=== PATIENT | female | born 1980 | race Caucasian/White ===

== ENCOUNTER 2017-05-15 08:50 | Inpatient (IN) | payer BC ==
[2017-05-15] MEDS ORDERED: OLIVE OIL 118 ML BTL MISC PRN ×2 (09:27→09:28)
[2017-05-15] MEDS ORDERED: TERBUTALINE SULFATE 1 MG/ML VIAL IV PRN ×2 (09:27→09:28)
[2017-05-15] MEDS ORDERED: LR 1,000 ML IV PRN ×2 (09:27→09:28)
[2017-05-15] MEDS ORDERED: IBUPROFEN 600 MG TAB PO PRN (09:27)
[2017-05-15] MEDS ORDERED: EPSOM SALT 454 GM TP PRN ×2 (09:27→09:28)
[2017-05-15] MEDS ORDERED: OXYTOCIN/RINGERS LACTATE 1,000 ML IV PRN ×2 (09:27→09:28)
[2017-05-15] MEDS ORDERED: BETAMETHASONE IM SYRINGE IM ONE (09:29)
--- NOTE | 2017-05-15 09:31 | OBPROG ---
OBG Labor Progress Note Assessment/Plan: Assessment: cat 1 fhr epidural for pain relief admit for labor /-1 cephalic contractions q 3 minutes continuous monitoring gbs negative Plan:expectant management of labor 05/15/17 09:30 Subjective: I would like an epidural for pain relief - SVE Dilation (cm): 4 Effacement (%): 80 Station: -1 ICD10 Worksheet Patient Problems: Problems Problem Status Onset labor Acute labor with delivery Acute delivery delivered Acute
[2017-05-15 09:52] LABS: % IMMATURE GRANULYOCYTES 1.7 % (0.0-1.1); ABSOLUTE NRBC COUNT 0.02 10^3/uL (0-0.01); ADD DIFF? NO; ADD MORPH? NO; ADD SCAN? NO; ATYPICAL LYMPHOCYTE FLAG 30 (0-99); FRAGMENT RBC FLAG 0 (0-99); HEMATOCRIT 37.2 % (38.0-47.0); HEMOGLOBIN 12.9 g/dL (12.6-16.3); LEFT SHIFT FLG 10 (0-99); LIPEMIA HEMOLYSIS FLAG 90 (0-99); MEAN CELL HEMOGLOBIN 30.3 pg (27.9-34.1); MEAN CELL HEMOGLOBIN CONCENTR. 34.7 g/dL (32.4-36.7); MEAN CELL VOLUME 87.3 fL (81.5-99.8); NRBC-AUTO% 0.2 % (0.0-0.2); PLATELET CLUMPS FLAG 0 (0-99); PLATELET COUNT 202 10^3/uL (150-400); RED BLOOD CELL COUNT 4.26 10^6/uL (4.18-5.33); RED CELL DISTRIBUTION WIDTH 13.1 % (11.5-15.2)
[2017-05-15] MEDS ORDERED: fentaNYL 100 MCG/2 ML INJ ONE (10:24)
[2017-05-15] MEDS ORDERED: fentaNYL 2MCG/ML/BUP 0.1% RTU 100 ML BAG EP ONE (10:25)
[2017-05-15] MEDS ORDERED: PHENYLEPHRINE HCL 100 MCG/ML SYR ONE (10:25)
[2017-05-15] MEDS ORDERED: BUPIVACAINE 0.25% 30 ML SDV ONE (10:25)
[2017-05-15] MEDS ORDERED: LIDOCAINE 1% 300 MG/30 ML SDV ONE (10:50)
[2017-05-15] MEDS ORDERED: OLIVE OIL 118 ML BTL ONE (10:50)
[2017-05-15] MEDS ORDERED: AMMONIA AROMATIC 1 EACH AMP IH ONE (10:51)
[2017-05-15] MEDS ORDERED: OXYTOCIN 10 UNIT/ML VIAL ONE (10:51)
[2017-05-15] MEDS ORDERED: TERBUTALINE SULFATE 1 MG/ML VIAL ONE (10:51)
[2017-05-15] MEDS ORDERED: MISOPROSTOL 200 MCG TAB ONE (10:51)
[2017-05-15] MEDS ORDERED: fentaNYL 2MCG/ML/BUP 0.1% RTU 100 ML EP SCH (11:00)
[2017-05-15] MEDS ORDERED: LR 500 ML IV SCH (11:00)
[2017-05-15] MEDS ORDERED: ACETAMINOPHEN 325 MG TAB PO PRN (12:13)
[2017-05-15] MEDS ORDERED: HYDROCORTISONE 0.5% CREAM TP PRN (12:13)
[2017-05-15] MEDS ORDERED: HYDROCODONE/APAP 5/325 TAB PO PRN (12:13)
[2017-05-15] MEDS ORDERED: SIMETHICONE 80 MG TAB CHEW PO PRN (12:13)
--- NOTE | 2017-05-15 12:13 | OBDEL ---
Info Type: Vaginal GBS+: No Indications for Delivery: Spontaneous Labor, SROM Vaginal Delivery - Labor and Delivery Onset of Contractions Date: 05/15/17 Onset of Contractions Time: 06:30 Onset of Contractions Type: Spontaneous Rupture of Membranes Date: 05/15/17 Rupture of Membranes Time: 10:30 Rupture of Membranes Type: Spontaneous Amniotic Fluid Color: Clear Dilation Complete Date: 05/15/17 Dilation Complete Time: 10:57 Laceration: 2nd Degree Repair: 3-0, Vicryl Vaginal Sponge Count Correct: Yes Vaginal Needle Count Correct: Yes Vaginal Sweep Performed: Yes EBL: 400 Delivery Events: None - Medications Labor Augmentation/Induction Methods Used: None, Other (Specify) ( 36.6 weeks. Bruised face) [place] Data [place] Delivery Date: 05/15/17 Delivery Time: 11:26 SKYE: 06/06/17 Gestational Age: 36 week(s) and 6 day(s) Sex of Infant: Male Score (1 Min): 8 Score (5 Min): 9 ICD10 Worksheet Patient Problems: Problems Problem Status Onset delivery delivered Acute labor Acute labor with delivery Acute
--- NOTE | 2017-05-15 13:53 | GHP ---
[f rep st] HISTORY AND PHYSICAL DATE OF ADMISSION: 05/15/2017 HISTORY OF PRESENT ILLNESS: Patient is a 37-year-old, 2, para 1, with an EDC of 06/06/2017, who comes in at 36 and 6/7 weeks, complaint of regular contractions since 0600 on 05/15/2017. Stat es bag of water is intact. Denies bloody show. States feeling positive movement. The angélica sosa has routinely been seen by [facility] throughout her , since 10 weeks and 1 day . MEDICAL HISTORY: Patient has a history of cystitis, UTI x1, 1-1/2 years ago. Asthma, adult onset, uses Advair. SURGERIES: The patient had a in 2013. [place] teeth in college. Present histor y: AMA, history of . History of delivery at 36-5/7 weeks. Marginal previa that w as resolved. Previous pregnancies: In 2013, a for failure to descend. Failure to progre ss. SOCIAL HISTORY: Patient is to [facility]. Denies smoking history, denies drug use history. GYNECOLOGICAL HISTORY: History of OCP's and Mirena. 2003, a colpo, re-Pap was negative. PHYSICAL ASSESSMENT: GENERAL: Patient is awake, alert, oriented x3. LUNGS: Clear bilaterally. A BDOMEN: Bowel sounds are positive in all 4 quadrants. EXTREMITIES: DTRs are 1+ bilaterally. Liv slade has received an epidural for pain relief at her request. PLAN OF CARE: 1. Group beta streptococcus negative. 2. Betamethasone, as patient is 36-6/7 weeks. 3. Expectant management of labor. 4. Patient is TOLAC. Physician was made aware and anesthesia as in-house. CONSULT: Dr. Mecca Diaz, as needed. Dr. Diaz is the physician on-call today. /[id number]/MODL
[2017-05-15] MEDS: IBUPROFEN 600 MG TAB PO PRN (16:16)
[2017-05-16] MEDS: IBUPROFEN 600 MG TAB PO PRN ×4 (00:08→18:33)
[2017-05-16] MEDS: IRON POLYSAC/IRON HEME 28 MG TAB PO SCH (08:15)
[2017-05-16] MEDS: DOCUSATE SODIUM 100 MG CAP PO PRN ×2 (08:15→20:39)
--- NOTE | 2017-05-16 09:47 | OBPP ---
Progress Note Assessment/Plan: Assessment: ppd# 1 s/p uncomplicated post course breast feeding anemia Plan: routine post care iron 05/16/17 09:46 Subjective: patient is doing well. pain is well controlled. normal lochia. breast feeding is going well. denies headache and changes in vision. tearful because baby is having blood sugar issues and may need an IV. excited was able to . Objective: 05/16/17 03:00 Patient ABO/Rh O POSITIVE 05/15/17 09:45 Temp Pulse Resp BP Pulse Ox 36.8 C 60 16 117/75 05/15/17 20:00 05/15/17 20:00 05/15/17 20:00 05/15/17 20:00 Uterine Position/Fundal Height: Umbilicus -2 Uterine Tone: Firm Physical Exam - Physical Exam General Appearance: WD/WN, alert, no apparent distress Respiratory: chest non-tender, lungs clear, normal breath sounds Cardiac/Chest: normal peripheral pulses, regular rate, rhythm Abdomen: normal bowel sounds, hypoactive bowel sounds, non-tender Extremities: normal range of motion, non-tender, normal inspection, normal capillary refill Skin: normal color, warm/dry Neuro/Psych: no motor/sensory deficits, alert, normal mood/affect, oriented x 3
[2017-05-16 22:07] VITALS: BP 114/76; PULSE 66; RESP 16; TEMP 98.9; O2SAT 97
[2017-05-17] MEDS: IBUPROFEN 600 MG TAB PO PRN ×3 (00:46→16:44)
[2017-05-17] MEDS: IRON POLYSAC/IRON HEME 28 MG TAB PO SCH (08:51)
[2017-05-17] MEDS: DOCUSATE SODIUM 100 MG CAP PO PRN ×2 (08:51→16:44)
--- NOTE | 2017-05-17 09:04 | OBPP ---
Progress Note Assessment/Plan: Assessment: s/p PPD # 2 - pt is stable Plan: Plan for d/c home later Instructions reviewed with pt No RX given Cont PNV Pelvic rest RTC in 4 and 6 weeks for pp visit 05/17/17 09:00 Subjective: Pt seen and examined. Doing well with no complaints. Mild cramping. Moderate lochia. Voiding without difficulty, passing flatus. No BM yet. BF without difficulty. Baby is in NICU and may get to go home in am. Objective: 05/16/17 03:00 Patient ABO/Rh O POSITIVE 05/15/17 09:45 Temp Pulse Resp BP Pulse Ox 37.2 C 66 16 114/76 97 05/16/17 20:00 05/16/17 20:00 05/16/17 20:00 05/16/17 20:00 05/16/17 20:00 Uterine Position/Fundal Height: Umbilicus -2 Uterine Tone: Firm Physical Exam - Physical Exam General Appearance: WD/WN, alert, no apparent distress Respiratory: lungs clear, normal breath sounds Cardiac/Chest: regular rate, rhythm Abdomen: normal bowel sounds, hypoactive bowel sounds, soft, flatus (+) Extremities: non-tender, normal inspection Skin: normal color, warm/dry Neuro/Psych: alert, normal mood/affect, oriented x 3
--- NOTE | 2017-05-17 09:08 | OBGCSDC ---
General Delivery Information - General Info : 2 Para: 2 Delivery Physician/CNM: Key Jasso Admission Date: 05/15/17 Labs: Patient ABO/Rh O POSITIVE 05/15/17 09:45 Hct 34.0 % (38.0-47.0) L 05/16/17 03:00 Vaginal - Diagnosis Labor: Spontaneous Rupture of Membranes Type: Spontaneous Amniotic Fluid Color: Clear Laceration: 2nd Degree Repair: 3-0, Vicryl Delivery Events: None - Operations/Procedures L&D Analgesia/Anesthesia Type: Epidural - Hospital Course Antepartum: AMA; marginal previa-resolved Intrapartum: Spontaneous labor; SROM-clear. Epidural. Successful TOLAC : Uncomplicated. Doing well with no complaints. Mod lochia. Mild cramping. Passing flatus, no BM. BF without difficulty. - Delivery L&D Analgesia/Anesthesia Type: Epidural [place] Data Mcmahon Delivery Date: 05/15/17 Delivery Time: 11:26 SKYE: 06/06/17 Gestational Age: 37 week(s) and 1 day(s) Sex of Infant: Male [place] Weight (gm): 3038 g Score (1 Min): 8 Score (5 Min): 9 Discharge Information - Discharge Information Discharge Medications: Ibuprofen, Vitamins Condition: Good Instruction/Follow Up: Four Weeks, Six Weeks Discharge Physician/CNM: Mecca Diaz
== END 2017-05-17 11:00 | disposition home or self-care (01) | DRG 775 ==
LOC: FLD 08:50 → OBSVTOIN 09:29 → FOB 15:32
PROVIDERS: ADMIT Advanced Practice Midwife; ATTEND Obstetrics & Gynecology
PROC: 0KQM0ZZ Repair Perineum Muscle, Open Approach (ICD-10-PCS; principal; 2017-05-15)
PROC: 10E0XZZ Delivery of Products of Conception, External Approach (ICD-10-PCS; principal; 2017-05-15)
DX: O60.14X0 Preterm labor third trimester with preterm delivery third trimester, not applicable or unspecified (principal); O70.1 Second degree perineal laceration during delivery; O34.219 Maternal care for unspecified type scar from previous cesarean delivery; Z3A.36 36 weeks gestation of pregnancy; Z37.0 Single live birth
CPT/HCPCS: J0702; J2370; J2590; J3010; J3105